=== PATIENT | female | born 1965 | race Two or more races ===

== ENCOUNTER → 2017-07-25 08:49 | Outpatient (CLI) | payer BC ==
--- NOTE | 2017-07-30 06:53 | EMG ---
PATIENT:ANGELA GARCIA DATE OF SERVICE: 07/25/17 MEDICAL RECORD: [id number] DATE OF : 69 LOCATION: [facility] ADMISSION DATE: REFERRING PHYSICIAN: KALANI GOINS MD INTERPRETING PHYSICIAN: RADHA REYNOLDS MD DATE OF SERVICE: 07/25/2017 REFERRED BY: Dr. Goins as an outpatient. DATE OF EXAMINATION: 07/25/2017 ELECTROMYOGRAPHIC DATA: Electromyographic examination is limited to the left lower extremity. In the left lower extremity, left peroneal motor stimulation elicits a compound motor action potential with a distal latency of 4.1 milliseconds, peak amplitude of 3 millivolts, and calculated conduction velocity of 46 meters per second. Left tibial motor stimulation elicits a compound motor action potential with a distal latency of 4.7 milliseconds, peak amplitude of 9 millivolts, and calculated conduction velocity of 43 meters per second. Antidromic left sural sensory stimulation elicits a response with a distal latency of 3.6 milliseconds, amplitude of 5 microvolts and calculated conduction velocity of 40 meters per second. The left lower extremity H reflex recording at gastrocsoleus has a latency of 33 milliseconds. Needle electrode examination is limited to the left lower extremity as well. Muscles interrogated include the abductor hallucis, extensor digitorum brevis, abductor digiti quinti, tibialis anterior, medial gastrocnemius, vastus lateralis, semitendinosis, and gluteus jesus. There is no abnormality of insertional activity and no abnormal spontaneous activity is seen in all muscles interrogated. Motor unit potential morphology and the pattern of motor unit potential firing and recruitment is normal in all muscles sampled. INTERPRETATION: Electromyographic examination of the left lower extremity is normal. There is no electrical evidence of a lumbosacral radiculopathy or other lesion of the lower motor neuron in the left lower extremity at this time. There is no evidence of active denervation. TRANSINT:[id number] Voice Confirmation ID: [id number] DOCUMENT ID: [id number] RADAH REYNOLDS MD at 0653 CC: [id number] DICTATION DATE: 07/26/17 0700 [employer]ESPERSON [employer]: 07/26/17 1217 DEP CLI 07/25/17 [place] [id number]
== END | disposition home or self-care (01) ==
LOC: D.CN 07-01 09:00
DX: M79.605 Pain in left leg (principal)